=== PATIENT | male | born 1950 | race Caucasian/White ===

== ENCOUNTER 2019-01-09 11:56 | Emergency (ER) | payer BC, OTHER ==
[~2019-01-09] VITALS: Ht 188 cm; Wt 93.9 kg
[2019-01-09 12:13] VITALS: BP 116/72
== END 2019-01-09 13:49 | disposition home or self-care (01) ==
LOC: ER 11:56
DX: T16.2XXA Foreign body in left ear, initial encounter (principal); X58.XXXA Exposure to other specified factors, initial encounter; Y93.89 Activity, other specified; Y99.8 Other external cause status; Y92.89 Other specified places as the place of occurrence of the external cause
CPT/HCPCS: 69200